=== PATIENT | male | born 1990 | race Caucasian/White ===

== ENCOUNTER 2025-10-09 16:50 | Emergency (ER) | payer BC, SELFPAY ==
[2025-10-09 16:51] VITALS: BP 152/108
--- NOTE | 2025-10-09 19:21 | ED.GENMED ---
History of Present Illness
General
Chief Complaint: Extremity Pain (non-traumatic)
Source: patient
Time Seen by Provider: 10/09/25 18:35
History of Present Illness
History of Present Illness:
35-year-old male with no significant past medical history presents to the emergency department for evaluation after experiencing pain just below the left knee and noticing some erythema over the last 24 hours. Patient notes that he was scratched by
his dog the other day and thinks that it could be related. Denies any fevers. He does note some increased pain/difficulty ambulating. Has not attempted any medications other than topical agents and a knee brace.
Past History
Past History
ED Past Medical History: None
ED Past Surgical History: None
Social History
Tobacco: Non-smoker
Alcohol: None
Drug: None
Personal:
Living: with family
Review of Systems
Review of Systems
All Other Systems: ROS reviewed and negative except as documented in HPI and ROS
Phy Exam
Physical Exam
Physical Exam:
GENERAL: Alert , in no apparent distress
EYE: conjunctiva clear
Head: Normocephalic atraumatic
NECK: Supple,
ENT: mmm.
LUNGS: no acute respiratory distress
NEUROLOGICAL: Alert and oriented
SKIN: Warm and dry, erythema to the proximal third of the tibia with increased warmth and tenderness, no joint effusion, full range of motion of the knee without any difficulty
MUSCULOSKELETAL: well perfused. no calf tenderness or edema
PSYCH: Normal and appropriate interaction.
Scores
Heart Failure Risk
Heart Failure Risk Score: Not Applicable
Heart Score for Chest Pain Patients
STEMI patient?: Not applicable
Withdrawal Assessment of Alcohol
Withdrawal Assessment Completed?: Not applicable
Sepsis
Sepsis Screening
Sepsis Assessment: Sepsis Ruled Out
Sepsis Screen
Sepsis Screen: Sepsis Ruled Out
Date: 10/09/25
Time: 23:59
Course
Orders/Labs/Results
Orders:
Orders
10/09/25 16:55
CR Knee - Left 4 Or More View* Urgent
Comment:
Reason For Exam: atraumatic pain
Vital Signs
Initial and Last Documented VS:
Initial Vital Signs
Temp Pulse Resp BP Pulse Ox
98.2 F 99 16 152/108 97
10/09/25 16:51 10/09/25 16:51 10/09/25 16:51 10/09/25 16:51 10/09/25 16:51
Last Documented Vital Signs
Temp Pulse Resp BP Pulse Ox
98.2 F 99 16 152/108 97
10/09/25 16:51 10/09/25 16:51 10/09/25 16:51 10/09/25 16:51 10/09/25 19:22
MDM/Problems Addressed
Differential Diagnosis Includes:
Cellulitis
Septic joint
Abscess
Lyme
Gout
MDM/Problems Addressed:
35-year-old male presenting to the ER for evaluation after noticing some erythema and increased pain to the proximal tibia, no trauma. Pain itself is not to the knee as noted in triage. Patient has full range of motion, no acute distress. X-ray
had been ordered from triage is unremarkable. Will treat for cellulitis with prescription of cephalexin. NSAIDs as needed for pain. Patient advised on return precautions. Stable for discharge.
*Pulse Oximetry
SaO2: 97
Oxygen Mode of Delivery: Room air
Patient hypoxic: no
*Critical Care Note
Total Time (30-74mins, 75-104mins- exclusive of procedures): Not Applicable
ED Attending Note
-
Portions of this chart may have been created with voice recognition software.� Occasional wrong word or��sound alike� substitutions may have occurred due to the inherent limitations of voice recognition software.
Discharge Plan
Departure
Patient Disposition: Home (Routine Discharge)
Date of Disposition: 10/09/25
Time of Disposition: 19:21
Patient with high blood pressure during this ER visit?: Yes
Discharge Problem:
Cellulitis of left lower extremity
Instructions: Cellulitis (skin infection) in adults - ED (DC)
Prescriptions:
New
cephalexin 500 mg tablet
500 mg PO BID 10 Days Qty: 20 0RF
Referrals:
Luca Bearden MD [Family Provider, Family Practice]
Interventions
Interventions:
*Risk Screen - Suicide Last Done: 10/09/25 18:52
*General Assessment Last Done: 10/09/25 18:52
*Neglect/Abuse Screening Last Done: 10/09/25 18:52
*ED COVID-19 Vaccine History Last Done: 10/09/25 18:52
*ED Influenza Vaccine History Last Done: 10/09/25 18:52
*Nursing Disposition Last Done: 10/09/25 19:40
ED-Musculoskeletal Assessment Last Done: 10/09/25 18:52
ED-Peripheral Vascular Assessment Last Done: 10/09/25 18:52
ED-Skin Assessment Last Done: 10/09/25 18:52
Discharge Date and Time
Discharge Date/Time: 10/09/25 19:40
Print Language: LATVIAN
== END 2025-10-09 19:40 | disposition home or self-care (01) ==
LOC: EMR 16:50
PROVIDERS: EMERGENCY PHYSICIAN Emergency Medicine; FAMILY PHYSICIAN Family Medicine
DX: L03.116 Cellulitis of left lower limb (principal); W54.8XXA Other contact with dog, initial encounter; R03.0 Elevated blood-pressure reading, without diagnosis of hypertension
CPT/HCPCS: 99283; 73564